=== PATIENT | male | born 1970 | race African-American/Black ===

== ENCOUNTER 2018-02-10 06:56 | Outpatient (CLI) | payer BC ==
--- NOTE | 2018-02-10 08:55 | ULT ---
SONOGRAM ABDOMEN COMPLETE: History: Abdomen and back pain. Renal stones. FINDINGS: Gallbladder has a normal appearance without evidence of stones. Common duct is 0.3 cm. Liver is unrem arkable without focal mass or intrahepatic biliary dilatation. No free fluid. The spleen, kidneys, an d visualized portions of the abdominal aorta, IVC, and pancreas have a normal appearance. IMPRESSION: No significant abnormalities are demonstrated. POS: [facility]
== END 2018-02-10 06:57 | disposition home or self-care (01) ==
LOC: BICULT 06:56
PROVIDERS: ATTEND Internal Medicine
DX: N20.0 Calculus of kidney (principal); M54.9 Dorsalgia, unspecified
CPT/HCPCS: 76700